=== PATIENT | female | born 1990 | race Caucasian/White ===

== ENCOUNTER 2018-02-16 21:05 | Emergency (ER) | payer OTHER ==
--- NOTE | 2018-02-16 21:08 | PDOC ---
Rapid Medical Evaluation Time Seen by Provider: 02/16/18 21:06 Medical Evaluation: I have performed a brief in-person evaluation of this patient. The patient presents with a chief complaint of: throat and mouth feels funny after eating dinner - getting worse - started about 20 minutes ago Pertinent physical exam findings: no angioedema I have ordered the following: hcg The patient will proceed to the ED for further evaluation.
[2018-02-16 21:09] VITALS: BP 156/74; BMI 32.8
[2018-02-16] MEDS ORDERED: methylPREDNISolone NA SUCC 125 MG/2 ML VIAL IVPUSH ONE (21:39)
--- NOTE | 2018-02-16 21:41 | PDOC ---
History of Present Illness - General Chief Complaint: Allergic Reaction Stated Complaint: ALLERGIC REACTION Time Seen by Provider: 02/16/18 21:06 - History of Present Illness Initial Comments: 02/16/18 21:31 27 yo F with no significant pmh who p/w with throat discomfort. Patient reports acute development of throat irritation and tongue tingling 20 minutes [employer] while eating. States that she ate steak and water chestnuts and developed airway constriction, with difficulty swallowing, odynophagia, and tingling sensation of mouth and tongue. Denies stridor, pruritus, vision change, skin changes, wheezing, GI discomfort. Similar episode with shrimp 1 year ago. Denies epi pen use or doughnut dough mixer of epipen. Patient denies OTC symptom management. Denies F/C, N/V, CP, SOB, abdominal pain, diarrhea, constipation, urinary complaints, weakness, lightheadedness, sensory changes PMHx: As noted above Allergies: shellfish ROS: as noted above. Past History - Past Medical History Allergies/Adverse Reactions: Allergies Allergy/AdvReac Type Severity Reaction Status Date / Time albuterol AdvReac Verified 02/16/18 21:07 COPD: No - Surgical History Cholecystectomy: Yes - Suicide/Smoking/Psychosocial Hx Smoking History: Current every day smoker Number of Cigarettes Smoked Daily: 10 Information on smoking cessation initiated: No Review of Systems - Review of Systems Comments:: 02/16/18 21:42 GENERAL/CONSTITUTIONAL: No fever or chills. No weakness. HEAD, EYES, EARS, NOSE AND THROAT: + Throat discomfort, globus sensation. No change in vision. No ear pain or discharge. CARDIOVASCULAR: No chest pain or shortness of breath RESPIRATORY: No cough, wheezing, or hemoptysis. GASTROINTESTINAL: No nausea, vomiting, diarrhea or constipation. GENITOURINARY: No dysuria, frequency, or change in urination. MUSCULOSKELETAL: No joint or muscle swelling or pain. No neck or back pain. SKIN: No rash NEUROLOGIC: No headache, vertigo, loss of consciousness, or change in strength/ sensation. ENDOCRINE: No increased thirst. No abnormal weight change HEMATOLOGIC/LYMPHATIC: No anemia, easy bleeding, or history of blood clots. ALLERGIC/IMMUNOLOGIC: No hives or skin allergy. *Physical Exam - Vital Signs Last Vital Signs Temp Pulse Resp BP Pulse Ox 94 H 20 156/74 99 02/16/18 21:07 05/07/18 21:07 02/16/18 21:07 02/16/18 21:07 - Physical Exam Comments: 02/16/18 21:43 GENERAL: Awake, alert, and fully oriented, in no acute distress HEAD: No signs of trauma, normocephalic, atraumatic EYES: PERRLA, EOMI, sclera anicteric, conjunctiva clear ENT: Auricles normal inspection, hearing grossly normal, nares patent, oropharynx clear without exudates. Moist mucosa NECK: Normal ROM, supple, no lymphadenopathy, JVD, or masses LUNGS: No distress, speaks full sentences, clear to auscultation bilaterally HEART: Regular rate and rhythm, normal S1 and S2, no murmurs, rubs or gallops, peripheral pulses normal and equal bilaterally. EXTREMITIES : Normal inspection, Normal range of motion, no edema. No clubbing or cyanosis. SKIN: Warm, Dry, normal turgor, no rashes or lesions noted Medical Decision Making - Medical Decision Making 02/16/18 21:46 27 yo F with no significant pmh who p/w with throat irritation following PO intake. VSS, A&OX3, NAD. Physical exam with no evidence of stridor, wheezing, uritcarial skin changes, or other findings to suggest acute anaphylactic reaction. No evidence of resp compromise. Able to visualize posterior oropharynx and entire uvuvla with absent glossal swelling. Probable acute hypersensitivity reaction. ED Course: Diphehydramine 25 IV, Methylprednsilone 125 IV, Famotidine 02/16/18 23:29 Patient stable and sx. improved. Plan to d/c with oupt.prednisone and return precautions. *DC/Admit/Observation/Transfer Diagnosis at time of Disposition: Allergic reaction Qualifiers: Encounter type: initial encounter Qualified Code(s): T78.40XA - Allergy, unspecified, initial encounter - Discharge Dispostion Disposition: HOME Condition at time of disposition: Stable Admit: No - Referrals - Patient Instructions Printed Discharge Instructions: DI for General Allergic Reactions Additional Instructions: Please return to the emergency department with any new or worsening symptoms or concerns. Please follow up with your primary care physician within 72 hours. Please take Prednisone once a day. - Post Discharge Activity - Attestations Physician Attestion: 02/16/18 23:30 I attest to the information provided in this note.
[2018-02-16] MEDS ORDERED: methylPREDNISolone NA SUCC 125 MG/2 ML VIAL ONE ×2 (21:52→21:53)
--- NOTE | 2018-02-16 22:16 | PDOC ---
Attending Attestation - [facility] HPI: 02/16/18 22:17 The patient is a 27 year old female, with no significant past medical history, who presents to the emergency department with throat discomfort and irritation after eating dinner this evening. The patient reports that approximately 20 minutes after eating steak and water chestnuts for dinner, her tongue began tingling and she began experiencing some throat discomfort/irritation in addition to odynophagia. She has not taken any medications for her symptoms, she reports that she immediately came to the ED for evaluation after the onset of symptoms. She reports a similar episode last year which occurred after she consumed shrimp. The patient denies fever, chills, headache, shortness of breath , chest pain, nausea, vomiting or diarrhea. She reports that she does not own an Epipen. Allergies: Albuterol. Past Surgical History: None reported. Social History: Current everyday smoker (1 pack every two days). Denies alcohol or drug use. - Physicial Exam PE: 02/16/18 22:17 Vitals: Triage vital signs reviewed. General Appearance: No acute distress, well nourished, well developed. Head: Atraumatic, normocephalic. Eyes: Pupils equal round reactive, extraocular movements intact. Nose: Nares patent bilaterally. No nasal congestion. Throat: Posterior oropharynx without erythema. Uvula is midline. Mucous membranes moist. Neck: Supple. No nuchal rigidity. Chest Wall: Nontender. Cardiac: Regular rate and rhythm. No murmurs, no rubs, no gallops. Lungs: Clear to auscultation bilaterally, good air movement bilaterally. No wheezing. No stridor. Extremities: Full range of motion to all extremities, no cyanosis, clubbing, or edema. Skin: Warm and dry, no rashes or lesions, no petechiae. Psych: Normal mood, normal affect. - Medical Decision Making 02/16/18 22:18 The patient is a 27 year old female, with no significant past medical history, who presents to the emergency department with throat discomfort and irritation after eating dinner this evening. The patient reports that approximately 20 minutes after eating steak and water chestnuts for dinner, her tongue began tingling and she began experiencing some throat discomfort/irritation in addition to odynophagia. She has not taken any medications for her symptoms, she reports that she immediately came to the ED for evaluation after the onset of symptoms. She reports a similar episode last year which occurred after she consumed shrimp. The patient denies fever, chills, headache, shortness of breath , chest pain, nausea, vomiting or diarrhea. She reports that she does not own an Epipen. Allergies: Albuterol. Past Surgical History: None reported. Social History: Current everyday smoker (1 pack every two days). Denies alcohol or drug use. Documentation prepared by Estela Brennan, acting as medical doctor md/medical director for Brian Jonas MD. <Estela Brennan - Last Filed: 02/16/18 22:18> - Resident Resident Name: Rip Garber - ED Attending Attestation I have performed the following: I have examined & evaluated the patient, The case was reviewed & discussed with the resident, I agree w/resident's findings & plan, Exceptions are as noted - Medical Decision Making 02/16/18 22:31 Well-appearing no apparent distress with mild ALLERGIC reaction while eating water chestnuts On physical exam no uvula edema controlling her secretions no stridor clear breath sounds bilaterally We'll treat with Benadryl and Solu-Medrol observe and reevaluate Reevaluation patient hemodynamically stable No progressively worsening anaphylactic reaction. We'll discharge home at short course of prednisone and primary care follow-up Findings, need for follow-up and strict return instructions discussed patient. <Brian Jonas - Last Filed: 02/17/18 03:25>
[2018-02-16 22:28] VITALS: PULSE 84
== END 2018-02-16 23:39 | disposition home or self-care (01) ==
LOC: JER 21:05
PROC: 3E0333Z Introduction of Anti-inflammatory into Peripheral Vein, Percutaneous Approach (ICD-10-PCS; principal; 2018-02-16)
PROC: 3E033GC Introduction of Other Therapeutic Substance into Peripheral Vein, Percutaneous Approach (ICD-10-PCS; 2018-02-16)
DX: T78.1XXA Other adverse food reactions, not elsewhere classified, initial encounter (principal)
CPT/HCPCS: 84703; 99282-25

== ENCOUNTER 2018-12-12 10:39 | Emergency (ER) | payer SELFPAY ==
[2018-12-12 11:16] VITALS: BP 109/73; PULSE 85; TEMP 98.6
--- NOTE | 2018-12-12 12:06 | PDOC ---
History of Present Illness - General Chief Complaint: Chest Pain Stated Complaint: RT CHEST PAIN Time Seen by Provider: 12/12/18 11:23 - History of Present Illness Initial Comments: 12/12/18 12:05 28-year-old female without comorbidities presents for evaluation of right-sided chest pain since this morning. She states she had a hard time getting out of bed because for pain. Her pain was exacerbated with movement. Hurts with deep breathing and coughing. She recently got over an upper respiratory infection. Past History - Past Medical History Allergies/Adverse Reactions: Allergies Allergy/AdvReac Type Severity Reaction Status Date / Time albuterol AdvReac Verified 12/12/18 11:00 Home Medications: Ambulatory Orders Ibuprofen [Motrin -] 600 mg PO TID #30 tablet 12/12/18 COPD: No Other medical history: DENIES. - Surgical History Cholecystectomy: Yes - Suicide/Smoking/Psychosocial Hx Smoking History: Current every day smoker Have you smoked in the past 12 months: Yes Number of Cigarettes Smoked Daily: 10 Information on smoking cessation initiated: No Review of Systems - Review of Systems Constitutional: No: Fever Cardiac (ROS): Yes: Chest Pain *Physical Exam - Vital Signs Last Vital Signs Temp Pulse Resp BP Pulse Ox 98.6 F 85 19 109/73 99 12/12/18 11:01 12/12/18 11:01 12/12/18 11:01 12/12/18 11:01 12/12/18 11:01 - Physical Exam Comments: 12/12/18 12:06 HEAD: NC/AT EYES: Conjuntiva clear Ears: Canals and TM's normal NOSE: No d/c THROAT: Moist mucous membrances, oral pharanx clear, uvula midline NECK: Supple without adenopathy CARDIAC: S1 S2 tenderness at the right costochondral junction at about ribs 3 and 4, made worse with arm movement. LUNGS: CTA Full and Equal breath sounds ABDOMEN: Soft NT ND MS: Full ROM in all joints without edema NEUROLOGIC: No gross sensory or motor deficits, NVID SKIN: Normal color and temperature no lesions or rashes Moderate Sedation - Procedure Monitoring Vital Signs: Procedure Monitoring Vital Signs Temperature 98.6 F 12/12/18 11:01 Pulse Rate 85 12/12/18 11:01 Respiratory Rate 19 12/12/18 11:01 Blood Pressure 109/73 12/12/18 11:01 O2 Sat by Pulse Oximetry (%) 99 12/12/18 11:01 *DC/Admit/Observation/Transfer Diagnosis at time of Disposition: Costochondritis - Discharge Dispostion Disposition: HOME Condition at time of disposition: Stable Decision to Admit order: No - Referrals Referrals: Nico Babcock [Non Staff, Medical] - - Patient Instructions Printed Discharge Instructions: DI for Atypical Chest Pain, Costochondritis, DI for Costochondritis Additional Instructions: Please start the Motrin tomorrow as we discussed. One tablet 3 times a day with food. Discontinue the medication if it bothers her stomach. No other anti- inflammatories. He may take Tylenol as directed. Follow-up with internal medicine in one to 2 days for further evaluation and treatment options. Return to the emergency room for worsening symptoms. Remember to rest the area as much as possible and increase her activity about a week after you start to feel relief of symptoms. - Post Discharge Activity
[2018-12-12] MEDS ORDERED: KETOROLAC TROMETHAMINE 60 MG/2 ML VIAL IM ONE (12:37)
[2018-12-12] MEDS ORDERED: KETOROLAC TROMETHAMINE 60 MG/2 ML VIAL ONE (12:48)
--- NOTE | 2018-12-14 11:00 | EKG ---
Test Reason : Blood Pressure : / mmHG Vent. Rate : 077 BPM Atrial Rate : 077 BPM P-R Int : 126 ms QRS Dur : 084 ms QT Int : 400 ms P-R-T Axes : 059 014 037 degrees QTc Int : 452 ms NORMAL SINUS RHYTHM WITH SINUS ARRHYTHMIA NORMAL ECG NO PREVIOUS ECGS AVAILABLE Confirmed by LAURYN WADE MD ([id number]) on 12/14/2018 11:00:24 AM Referred By: Confirmed By:LAURYN WADE MD
== END 2018-12-12 13:12 | disposition home or self-care (01) ==
LOC: JERFT 10:39 → JER 10:39 → JERFT 13:12
PROC: 3E0233Z Introduction of Anti-inflammatory into Muscle, Percutaneous Approach (ICD-10-PCS; principal; 2018-12-12)
DX: M94.0 Chondrocostal junction syndrome [Tietze] (principal)
CPT/HCPCS: 84703; 93005; 93010; 99281-25

== ENCOUNTER 2021-12-17 04:08 | Day surgery (SDC) | payer OTHER ==
[2021-12-14 17:57] VITALS: BMI 31.0
[2021-12-17] MEDS ORDERED: oxyCODONE HCL 5 MG TABLET PO PRN ×2 (10:37→10:43)
[2021-12-17] MEDS ORDERED: ACETAMINOPHEN 325 MG TABLET (FP) PO PRN (10:37)
[2021-12-17] MEDS ORDERED: IBUPROFEN 400 MG TABLET (FP) PO PRN (10:37)
[2021-12-17] MEDS ORDERED: ONDANSETRON 4 MG/2 ML VIAL IVPUSH PRN ×2 (10:39→10:43)
[2021-12-17] MEDS ORDERED: PROMETHAZINE HCL 25 MG/1 ML VIAL IVPUSH PRN (10:43)
[2021-12-17] MEDS ORDERED: LACTATED RINGERS SOLUTION 1,000 ML IV SCH (10:45)
[2021-12-17] MEDS ORDERED: DOXYCYCLINE INJECTION 100 MG in DEXTROSE 5%-WATER 100 ML IVPB ONE (11:00)
[2021-12-17] MEDS ORDERED: PROPOFOL 20 ML ONE ×2 (11:00)
[2021-12-17] MEDS ORDERED: MIDAZOLAM HCL 2 MG/2 ML SINGLE DOSE VIAL ONE (11:00)
[2021-12-17] MEDS ORDERED: MINERAL OIL/PETROLATUM,WHITE 3.5 GM TUBE ONE (11:55)
[2021-12-17 13:51] VITALS: TEMP 97.8
[2021-12-17 15:44] VITALS: BP 120/70; PULSE 78
== END 2021-12-17 15:30 | disposition home or self-care (01) ==
LOC: JASU-SURG 04:08
PROVIDERS: ATTEND Obstetrics & Gynecology
PROC: 10D17ZZ Extraction of Products of Conception, Retained, Via Natural or Artificial Opening (ICD-10-PCS; principal; 2021-12-17 09:30)
DX: O02.1 Missed abortion (principal); Z3A.10 10 weeks gestation of pregnancy
CPT/HCPCS: 88305-TC; 94760